=== PATIENT | female | born 1990 | race Hispanic/Latino ===

== ENCOUNTER 2020-02-05 18:26 | Emergency (ER) | payer BC, OTHER ==
[~2020-02-05] VITALS: Ht 162.6 cm; Wt 79.4 kg
--- NOTE | 2020-02-05 19:07 | Emergency Department Note ---
History of Present Illnes History of Present Illness History of Present Illness This is a 29 year old female c/o left foot and ankle pain. Her left foot caught on a rug and she fell, tiny abrasion in the middle toe, tender meddle toe and ankle, no swelling no obvious deformity. . Arrival Mode: Car Computer Training Specialist Required: No Onset (how long ago): hour(s) Radiation: Reports proximal Severity: mild Onset quality: sudden Duration (how long): hour(s) Timing of current episode: constant Progression: unchanged Chronicity: new Relieving factors: none Exacerbating factors: none Associated symptoms: Reports denies other symptoms Treatments prior to arrival: none Past Medical/Family History Physician Review I have reviewed the patient's past medical and family history. Any updates have been documented here. Past Medical History Recent Fever: No Clinical Suspicion of Infectio: No New/Unexplained Change in Ment: No Past Medical History: None Social History Smoking Cessation: Unknown if ever smoked Other Any Pre-Existing Lines (PICC,: No Review of Systems Review of Systems Constitutional: Reports no symptoms EENTM: Reports no symptoms Cardiovascular: Reports no symptoms Respiratory: Reports no symptoms Gastrointestinal: Reports no symptoms Genitourinary: Reports no symptoms Musculoskeletal: Reports as per HPI Integumentary: Reports as per HPI Neurological: Reports no symptoms Psychological: Reports no symptoms Endocrine: Reports no symptoms Hematological/Lymphatic: Reports no symptoms Physical Exam Related Data Allergies: Coded Allergies: zolpidem (Verified Allergy, Unknown, 02/05/20) Vital signs reviewed: Yes Physical Exam CONSTITUTIONAL Constitutional: Present well-developed, Present well-nourished HENT HENT: Present normocephalic, Present atraumatic, Present oropharynx clear/m oist, Present nose normal HENT L/R: Present left ext ear normal, Present right ext ear normal EYES Eyes: Reports PERRL, Reports conjunctivae normal NECK Neck: Present ROM normal PULMONARY Pulmonary: Present effort normal, Present breath sounds normal CARDIOVASCULAR Cardiovascular: Present regular rhythm, Present heart sounds normal, Present capillary refill normal, Present normal rate GASTROINTESTINAL Abdominal: Present soft, Present nontender, Present bowel sounds normal GENITOURINARY Genitourinary: Present exam deferred SKIN Skin: Present warm, Present dry MUSCULOSKELETAL Musculoskeletal: Present ROM normal, Present tenderness (tender middle toe, small abrasion medially, tender ankle no obvious deformity) NEUROLOGICAL Neurological: Present alert, Present oriented x 3, Present no gross motor or sensory deficits PSYCHOLOGICAL Psychological: Present mood/affect normal, Present judgement normal Results Imaging Imaging results reviewed: Yes Imaging Comments no fracture Diagnostics Tests Diagnostic test(s) reviewed: Yes Assessment & Plan Medical Decision Making MDM minor trauma Assessment & Plan Final Impression: (1) Acute pain due to trauma (2) Abrasion foot/toe Depart Disposition: HOME, SELF-CARE Physician Attestation Provider Attestation Pt walks in and out of the ER in no acute distress, gaits brisk and steady, minor injuries JOSE SALAS MD Feb 05, 2020 19:07
--- OUTSIDE RECORDS SUMMARY | 2020-02-05 19:50 | XMS REPORT | Summary of Care ---
Author Author TONYA Noguera LVN Organization Unknown Address Unknown Phone Unavailable Care Team Providers Care Armament Installer Name Role Phone MAEGAN EGAN APRN Unavailable Unavailable SANDRINE Hayward, TRACI Unavailable Unavailable YEH DO [place], GINI-DADA Unavailable Unavailable SANDRINE MARTINI, TRACI Unavailable Unavailable MAYELA MILLARD MD Unavailable Unavailable YEH DO [place], GINI-DADA Unavailable Unavailable Unavailable Unavailable Functional Status Name Dates Details Functional status health issues are not documented Status: Name Dates Details Cognitive status health issues are not d ocumented Status: Problems Name Dates Details Acute maxillary sinusitis (461.0, J01.00 ) Status: Active Fatigue due to sleep pattern disturbance (780.79, R53.83) Status: Active Psychophysiological insomnia (307.42, F5 1.04) Status: Active Clinical depression (311, F32.9) Status: Active Allergic rhinitis, seasonal (477.9, J30. 2) Status: Active Anxiety and depression (300.00, F41.9) Status: Active Annual physical exam (V70.0, Z00.00) Status: Active Medications Name Dates Details hydrOXYzine HCl - 50 MG Oral Tablet BID MAEGAN EGAN APRN * Start : 29-May-2017 Active Lexapro 20 MG Oral Tablet qd * Refills: 0 Active Topiramate 50 MG Oral Tablet * Refills: 0 Active QUEtiapine Fumarate 200 MG Oral Tablet * Refills: 0 Active Rexulti 1 MG Oral Tablet * Refills: 0 Active Allergies and Adverse Reactions Name Dates Details Ambien (Adverse Event) Reaction: Diarrhe a, Vomiting Status: Active Past Medical History Name Dates Details History of anxiety disorder (V11.8, Z86. 59) Status: Resolved History of blood disorder (V12.3, Z86.2) Status: Resolved History of depression (V11.8, Z86.59) Status: Resolved Procedures Procedure Dates Details History of section Completed History of [place] tooth extraction Compl eted History of Tonsillectomy Completed Immunization Name Dates Details Tdap (Boostrix) on: Jun-2015 Family History Name Dates Details Family history of essential hypertension (V17.49, Z82.49) Status: Active Family history of High blood cholesterol (272.0, E78.00) Status: Active Family history of borderline diabetes me llitus (V18.0, Z83.3) Status: Active Name Dates Details Family history of essential hypertension (V17.49, Z82.49) Status: Active Family history of borderline diabetes me llitus (V18.0, Z83.3) Status: Active Social History Name Dates Details - Status: Name Dates Details Smokes tobacco daily (finding) Ex-smoker (finding) Vital Signs Date Test Result Details [id number] Systolic blood pressure 123 mm[Hg] Status: Comments : Location: LUE; Position: Sitting Diastolic blood pressure 79 mm[Hg] Status: Comment s: Location: LUE; Position: Sitting Physical Findings 0 Status: Comments: PH Q-9 Adult Depression Screening Body height 64 in Status: Weight 175 lb Status: Body mass index (BMI) [Ratio] 30.04 kg/m2 Status: Body surface area Derived from formula 1.85 m2 S tatus: Body temperature 98.5 f Status: Comments: Me thod: Temporal Heart Rate 84 /min Status: Comments: Lo cation: L Radial; Respiratory rate 16 /min Status: Comments: Qu ality: Normal Physical Findings 0 Status: Comments: Al cohol Screen - How many times in the past yr have you had 5 (for M) or 4 (for F) or 4 (for all > 65yrs) or more drinks in a day? Results Date Description Value Details Results not documented Plan of Care Name Dates Details Planned Observations Planned Goals not documented Planned Encounters Appointment; MAEGAN EGAN APRN On: 18-Jul-2020 11:00 Interventions Provided Labs/Procedures/Imaging* Tobacco Use Screening; Done: 13 Jan 2020 Plan* 1. Physical * - Papsmear results requested * - Patient to send recent lab work * Patient advised to follow up as needed or if worse, symptoms change or not improving. Patient to call with any questions Instructions Name Dates Details Instructions not documented Encounters Appointment; TRACI DELUCA M.D. Encounter Diagnosis: Problem not documented On: 13-Jan-2020 11:00
--- OUTSIDE RECORDS SUMMARY | 2020-02-05 19:50 | XMS REPORT | Summary of Care ---
Author Author TONYA Glynn R.N. Organization Unknown Address [facility] Phone Unavailable Care Team Providers Care Freelance Translator Name Role Phone MAEGAN EGAN N.P. Unavailable Unavailable Adali Glynn R.N. Unavailable Unavailable YE DO [place], FAZAL Unavailable Unavailable Unavailable Unavailable Functional Status Name Dates Details Functional status health issues are not documented Status: Name Dates Details Cognitive status health issues are not d ocumented Status: Problems Name Dates Details Acute maxillary sinusitis (461.0, J01.00 ) Status: Active Allergic rhinitis, seasonal (477.9, J30. 2) Status: Active Fatigue due to sleep pattern disturbance (780.79, R53.83) Status: Active Clinical depression (311, F32.9) Status: Active Anxiety and depression (300.00, F41.9) Status: Active Psychophysiological insomnia (307.42, F5 1.04) Status: Active Medications Name Dates Details PARoxetine HCl - 40 MG Oral Tablet TAKE 1 TABLET DAILY DIRECTED. Quantity: 90 EGAN N.P., MAEGAN * Start : 03-Feb-2017 Active BuPROPion HCl ER (XL) 300 MG Oral Tablet Extended Release 24 Hour TAKE 1 TABLET DAILY DIRECTED. * Quantity: 90 Refills: 1 EGAN N.P., MAEGAN * Start : 29-May-2017 Active HydrOXYzine HCl - 25 MG Oral Tablet TAKE 1 TABLET AT BEDTIME NEEDED. * Quantity: 30 Refills: 1 EGAN N.P., MAEGAN * Start : 29-May-2017 Active Allergies and Adverse Reactions Name Dates Details Ambien (Adverse Event) Reaction: Diarrhe a, Vomiting Status: Active Past Medical History Name Dates Details History of anxiety disorder (V11.8, Z86. 59) Status: Resolved History of blood disorder (V12.3, Z86.2) Status: Resolved History of depression (V11.8, Z86.59) Status: Resolved Procedures Procedure Dates Details History of Tonsillectomy Completed History of [place] tooth extraction Compl eted History of section Completed Immunization Name Dates Details Immunizations not documented Family History Name Dates Details Family history of borderline diabetes me llitus (V18.0, Z83.3) Status: Active Family history of High blood cholesterol (272.0, E78.00) Status: Active Family history of essential hypertension (V17.49, Z82.49) Status: Active Name Dates Details Family history of borderline diabetes me llitus (V18.0, Z83.3) Status: Active Family history of essential hypertension (V17.49, Z82.49) Status: Active Social History Name Dates Details - Status: Name Dates Details Current every day smoker Vital Signs Date Test Result Details No Known Vitals to report Results Date Description Value Details Results not documented Plan of Care Name Dates Details Planned Observations Planned Goals not documented Instructions Name Dates Details Instructions not documented Encounters Appointment; GILES VAUGHAN M.D. Encounter Diagnosis: Problem not documented On: 03-Feb-2017 15:45 Appointment; MAEGAN EGAN NP Encounter Diagnosis: Problem not documented On: 29-May-2017 10:15 Appointment; MAEGAN EGAN NP Encounter Diagnosis: Problem not documented On: 12-Jun-2017 10:15 Appointment; MAEGAN EGAN NP Encounter Diagnosis: Problem not documented On: 21-Aug-2017 12:15
--- OUTSIDE RECORDS SUMMARY | 2020-02-05 19:50 | XMS REPORT | Continuity of Care Document ---
Author Author [facility] t Organization [facility] Address [address] [place] [address] Phone Unavailable Care Team Providers Care Communications Planner Name Role Phone TRACI DELUCA M.D. Attphys Unavailable MAEGAN EGAN NP Attphys Unavailable GILES VAUGHAN M.D. Attphys Unavailable Payers Payer Name Policy Type Policy Number Effective Date Expiration Date S ource Problems Condition Name Condition Details Condition Category Status Onset Date Resolution Date Last Treatment Date Treating Clinician Comments Source History of depression History of depression Problem Resolved [facility] History of blood disorder History of blood disorder Problem Resolved [facility] Acute maxillary sinusitis Acute maxillary sinusitis Problem Active [facility] Fatigue due to sleep pattern disturbance Fatigue due t o sleep pattern disturbance Problem Active [facility] Psychophysiological insomnia Psychophysiological insomnia Problem Active [facility] Clinical depression Clinical depression Problem Active [facility] Allergic rhinitis, seasonal Allergic rhinitis, seasonal Problem Active [facility] Anxiety and depression Anxiety and depression Problem Active [facility] Annual physical exam Annual physical exam Problem Active [facility] Allergies, Adverse Reactions, Alerts Allergy Name Allergy Type Status Severity Reaction(s) Onset Date Inacti ve Date Treating Clinician Comments Source zolpidem DA Active SV 2019-11-17 00:00:00 [facility] zolpidem DA Active SV 2017-11-11 00:00:00 [facility] Ambien Propensity to adverse reactions to drug (finding) Acti ve Diarrhea, Vomiting [facility] Family History Family Member Diagnosis Comments Start Date Stop Date Source Mother Family history of borderline diabetes mellitus [facility] Mother Family history of High blood cholesterol [facility] Mother Family history of essential hypertension [facility] Father Family history of borderline diabetes mellitus [facility] Father Family history of essential hypertension [facility] Social History Smoking Status Start Date Stop Date Source Smokes tobacco daily (finding) [facility] Ex-smoker (finding) [facility] Medications Ordered Medication Name Filled Medication Name Start Date Stop Da te Current Medication? Ordering Clinician Indication Dosage Frequency Signature (SIG) Comments Components Source hydrOXYzine HCl - 50 MG Oral Tablet hydrOXYzine HCl - 50 MG Oral Tablet 2017-05-29 00:00:00 Yes MAEGAN EGAN [employer] PROGRAM COORDINATOR BID [facility] Lexapro 20 MG Oral Tablet Lexapro 20 MG Oral Tablet Yes qd [facility] Topiramate 50 MG Oral Tablet Topiramate 50 MG Oral Tablet Yes [facility] QUEtiapine Fumarate 200 MG Oral Tablet QUEtiapine Fumarate 200 M G Oral Tablet Yes [facility] Rexulti 1 MG Oral Tablet Rexulti 1 MG Oral Tablet Yes [facility] Immunizations Ordered Immunization Name Filled Immunization Name Date Status Comments Source Tdap (Boostrix) Unknown Completed [facility] Vital Signs Vital Name Observation Time Observation Value Comments Source Systolic blood pressure 2020-01-13 11:00:00 123 mm[Hg] Loca tion: LUE; Position: Sitting [facility] Diastolic blood pressure 2020-01-13 11:00:00 79 mm[Hg] Loc ation: LUE; Position: Sitting [facility] Body height 2020-01-13 11:00:00 64 [in_us] [facility] Weight 2020-01-13 11:00:00 175 [lb_av] [facility] Body mass index (BMI) [Ratio] 2020-01-13 11:00:00 30.04 kg/m2 [facility] Body temperature 2020-01-13 11:00:00 98.5 [degF] Method: Temporal [facility] Heart Rate 2020-01-13 11:00:00 84 /min Location: L Radial; [facility] Respiratory rate 2020-01-13 11:00:00 16 /min Quality: Normal [facility] BP Systolic 2017-08-21 12:22:00 131 mm[Hg] Location: LUE; Positi on: Sitting [facility] BP Diastolic 2017-08-21 12:22:00 80 mm[Hg] Location: TRISTIANE; Positi on: Sitting [facility] Height 2017-08-21 12:22:00 64 [in_us] [facility] Weight 2017-08-21 12:22:00 184.4375 [lb_av] [facility] Body Mass Index Calculated 2017-08-21 12:22:00 31.66 kg/m2 [facility] Temperature 2017-08-21 12:22:00 97.2 [degF] Method: Temporal [facility] Heart Rate 2017-08-21 12:22:00 106 /min [facility] Respiration Rate 2017-08-21 12:22:00 14 /min [facility] BP Systolic 2017-06-12 10:13:00 114 mm[Hg] Location: TRISTIANE; Positi on: Sitting [facility] BP Diastolic 2017-06-12 10:13:00 64 mm[Hg] Location: TRISTIANE; Positi on: Sitting [facility] Height 2017-06-12 10:13:00 64 [in_us] [facility] Weight 2017-06-12 10:13:00 183.2 [lb_av] [facility] Body Mass Index Calculated 2017-06-12 10:13:00 31.45 kg/m2 [facility] Temperature 2017-06-12 10:13:00 98.6 [degF] Method: Oral [facility] Heart Rate 2017-06-12 10:13:00 87 /min [facility] Respiration Rate 2017-06-12 10:13:00 16 /min [facility] BP Systolic 2017-05-29 10:23:00 112 mm[Hg] Location: LUE; Positi on: Sitting [facility] BP Diastolic 2017-05-29 10:23:00 74 mm[Hg] Location: LUE; Positi on: Sitting [facility] Height 2017-05-29 10:23:00 64 [in_us] [facility] Weight 2017-05-29 10:23:00 184 [lb_av] [facility] Body Mass Index Calculated 2017-05-29 10:23:00 31.58 kg/m2 [facility] Temperature 2017-05-29 10:23:00 98.1 [degF] Method: Oral [facility] Respiration Rate 2017-05-29 10:23:00 16 /min [facility] Heart Rate 2017-05-29 10:23:00 86 /min [facility] Procedures Procedure Date / Time Performed Performing Clinician Sourc e [Q] HCG, TOTAL, QL 2017-06-12 00:00:00 [facility] History of Tonsillectomy [facility] History of [place] tooth extraction [facility] History of section [facility] Plan of Care Planned Activity Planned Date Details Comments Source Future Appointment 2020-07-18 11:00:00 YESENIA ISSA [facility] Encounters Start Date/Time End Date/Time [facility] Encounter ID Source 2020-01-13 11:00:00 2020-01-13 11:00:00 Appointment; PEGGY DELUCA M.D. MOHEYUDDIN, AMINA, M.D. [facility], [address] [id number] [facility] 2017-08-21 12:15:00 2017-08-21 12:15:00 Appointment; FAY EGAN NP HOANG, CHRISTINA, NP [facility] [address] [id number] [facility] 2017-06-12 10:15:00 2017-06-12 10:15:00 Appointment; FAY EGAN NP HOANG, CHRISTINA, NP [facility] [address] [id number] [facility] 2017-05-29 10:15:00 2017-05-29 10:15:00 Appointment; FAY EGAN NP HOANG, CHRISTINA, NP [facility] [address] [id number] [facility] 2017-02-03 15:45:00 2017-02-03 15:45:00 Appointment; SINDHU VAUGHAN M.D. PERKISON, WILLIAM, M.D. [facility] [id number] [facility] Results Test Description Test Time Test Comments Results Result Comments Source BASIC METABOLIC PANEL 2019-11-17 23:19:00 Test Item SODIUM (test code = NA) 139 mEq/L 134-147 N POTASSIUM (test code = K) 3.4 mEq/L 3.4-5.0 N CHLORIDE (test code = CL) 106 mEq/L 100-108 N CARBON DIOXIDE (test code = CO2) 26 mEq/L 21-33 N ANION GAP (test code = GAP) 10 0-20 N GLUCOSE (test code = GLU) 94 mg/dL 70-110 N BLOOD UREA NITROGEN (test code = BUN) 10 mg/dL 7-18 N GLOMERULAR FILTRATION RATE (test code = GFR) 84.2 105-110 L Units of measure = ml/min/1.73 m2 CREATININE (test code = CREAT) 0.8 mg/dL 0.6-1.3 N CALCIUM (test code = CA) 9.1 mg/dL 8.0-10.5 N PROTHROMBIN [id number] 23:11:00* Test Item Value Reference Range Interpretation Comments PROTHROMBIN TIME PATIENT (test code = PTP) 11.0 SECONDS 9.3-12.9 N INTERNATIONAL NORMAL RATIO (test code = INR) 1.0 0.8-1.2 N TARGET INR BY INDICATION Indication INR1. Prophylaxis of venous thrombosis 2.0 - 3.0 (orthopedic surgery), Prophylaxis of venous thrombosis (other than high-risk surgery), Treatment of Deep Vein Thrombosis/Pulmonary Embolism, Prevention of systemic embolism - Tissue heart valves, Acute Myocardial Infarction (to prevent systemic embolism), Valvular heart disease, Atrial Fibrillation, Bileaflet mechanical valve in aortic position.2. Mechanical prosthetic valves (high risk), 2.5 - 3.5 Presence of Lupus Anticoagulant or Antiphospholipid Antibodies, Prevention of systemic embolism - Acute Myocardial Infarction (to prevent recurrent infarct). THROMBOPLASTIN TIME [id number] 23:11:00* Test Item Value Reference Range Interpretation Comments THROMBOPLASTIN TIME PARTIAL (test code = PTT) 38.1 Seconds 25.0-39. 5 N Therapeutic Range: 50.4 - 88.3 Seconds Effective 10/12/2018 BASIC METABOLIC [id number] 23:10:00* Test Item Value Reference Range Interpretation Comments SODIUM (test code = NA) 139 mEq/L 134-147 N POTASSIUM (test code = K) 3.4 mEq/L 3.4-5.0 N CHLORIDE (test code = CL) 106 mEq/L 100-108 N CARBON DIOXIDE (test code = CO2) 26 mEq/L 21-33 N ANION GAP (test code = GAP) 10 0-20 N GLUCOSE (test code = GLU) 94 mg/dL 70-110 N BLOOD UREA NITROGEN (test code = BUN) 10 mg/dL 7-18 N GLOMERULAR FILTRATION RATE (test code = GFR) 105-110 CREATININE (test code = CREAT) mg/dL 0.6-1.3 CALCIUM (test code = CA) 9.1 mg/dL 8.0-10.5 N URINALYSIS [id number] 23:10:00* Test Item Value Reference Range Interpretation Comments UA COLOR (test code = COLU) YELLOW YEL/STRAW UA APPEARANCE (test code = APPU) SL CLOUDY CLEAR UA GLUCOSE DIPSTICK (test code = DGLUU) NEGATIVE NEGATIVE UA BILIRUBIN DIPSTICK (test code = BILU) NEGATIVE NEGATIVE UA KETONE DIPSTICK (test code = KETU) NEGATIVE NEGATIVE UA SPECIFIC GRAVITY (test code = SGU) 1.015 1.005-1.030 N UA BLOOD DIPSTICK (test code = JENNIFER) 2+ NEGATIVE A UA PH DIPSTICK (test code = CECILIA) 6.0 5.0-7.0 N UA PROTEIN DIPSTICK (test code = PROU) NEGATIVE NEGATIVE UA UROBILINIOGEN DIPSTICK (test code = URO) 2.0 mg/dL 0.2-1.0 A UA NITRITE DIPSTICK (test code = ALEXANDREA) NEGATIVE NEGATIVE UA LEUKOCYTE ESTERASE DIPSTICK (test code = LEUU) TRACE NEGA TIVE A UA RBC (test code = RBCU) 4-10 RBC/HPF 0-3 UA WBC NO REFLEX (test code = WBCUCL) 4-9 WBC/HPF 0-3 A UA BACTERIA (test code = BACU) 1+ /HPF NONE SEEN A UA SQUAMOUS CELLS (test code = SQU) 6-10 /HPF NONE SEEN A CBC W/AUTO [id number] 23:01:00* Test Item Value Reference Range Interpretation Comments WHITE BLOOD CELL (test code = WBC) 10.95 x10 3/uL 4.5-11.0 N RED BLOOD CELL (test code = RBC) 4.73 x10 6/uL 3.54-5.02 N HEMOGLOBIN (test code = HGB) 13.5 g/dL 11.0-15.0 N HEMATOCRIT (test code = HCT) 42.5 % 33.0-45.0 N MEAN CELL VOLUME (test code = MCV) 89.9 fL 81.0-99.0 N MEAN CELL HGB (test code = MCH) 28.5 pg 27.0-33.0 N MEAN CELL HGB CONCETRATION (test code = MCHC) 31.8 g/dL 33.0-37. 0 L RED CELL DISTRIBUTION WIDTH CV (test code = RDW) 14.4 % 11.5- 14.5 N RED CELL DISTRIBUTION WIDTH SD (test code = RDW-SD) 47.7 fL 37 .0-54.0 N PLATELET COUNT (test code = PLT) 216 x10 3/uL 150-400 N MEAN PLATELET VOLUME (test code = MPV) 10.2 fL 7.0-9.0 H NEUTROPHIL % (test code = NT%) 57.8 % 56.0-77.0 N IMMATURE GRANULOCYTE % (test code = IG%) 0.4 % 0.0-2.0 N LYMPHOCYTE % (test code = LY%) 30.9 % 14.0-32.0 N MONOCYTE % (test code = MO%) 6.9 % 4.8-9.0 N EOSINOPHIL % (test code = EO%) 3.1 % 0.3-3.7 N BASOPHIL % (test code = BA%) 0.9 % 0.0-2.0 N NUCLEATED RBC % (test code = NRBC%) 0.0 % 0-0 N NEUTROPHIL # (test code = NT#) 6.33 x10 3/uL 2.0-7.6 N IMMATURE GRANULOCYTE # (test code = IG#) 0.04 x10 3/uL 0.00-0.03 H LYMPHOCYTE # (test code = LY#) 3.38 x10 3/uL 1.0-3.8 N MONOCYTE # (test code = MO#) 0.76 x10 3/uL 0.1-0.8 N EOSINOPHIL # (test code = EO#) 0.34 x10 3/uL 0.0-0.2 H BASOPHIL # (test code = BA#) 0.10 x10 3/uL 0.0-0.2 N NUCLEATED RBC # (test code = NRBC#) 0.00 x10 3/uL 0.0-0.1 N MANUAL DIFF REQUIRED (test code = IFF) NO [id number] 16:43:00 RUN DATE: 11/11/19 [facility] PAGE 1 RUN TIME: 1643 Specimen Inqui ry RUN USER: INTERFACE PATIENT: TONYA SPAIN ACCT #: [id number] LOC: Patricia U #: [id number] AGE/SX: 28/F ROOM: RE11/09/19REG DR: Jermaine Jensen MD : 88 BED: DIS: STATUS: OLENA PERALTA TLOC: SPEC #: [id number] RECD: 11/10/19-1033 STATUS: RAZ REQ #: [id number] SHERRY: 11/09/19- [facility] DR: Jermaine Jensen MD ENTERED: 11/10/19-1034 SP TYPE: [facility] DR: ORDERED: GROSS PROCEDURES: GROSS (11/11/19-1050) TISSUES: PRODUCTS OF CONCEPTION, NOS CLINICAL HISTORY COLLECTION RAMANA E: 11/09/19 MISSED FINAL DIAGNOSIS Products of concepti on, dilatation and curettage: IMMATURE CHORIONIC VILLI AND SECRETORY ENDO METRIUM WITH DECIDUAL CHANGE DMW/sm D [id number] MACROSCO PIC The specimen is received in formalin, labeled with the patient's name, an d identified as "products of conception". It consists of multiple callahan-roldan fragments of tissue received in a clear plastic curettage device. The tissue measures 4.5 x 3.7 x 0.8 cm in aggregate. Samples of the specimen are submitt ed for microscopic evaluation in cassettes (1A and 1B). IZAIAH PERFORME D AT [facility] [address] [place] [address] (p)[phone] MICROSCOPIC Al l of the stains, including any controls performed, stain appropriately. MICROSCOPIC PERFORMED AT [facility] CONTINUED ON NEXT PAGE RUN DATE: 11/11/19 [facility] PAGE 2 RUN TIME: 1643 Specimen Inquiry RUN USER: INTERFACE SPEC #: [id number] PATIENT: TONYA SPAIN #[id number] (Continue d) MICROSCOPIC ([facility]) [facility] [address] [facility] [address] (P)[phone] PERFORM ING SITE Diagnosis performed at: [facility] [address] [place] [address] Signed SIGNATURE ON FILE Nina More MD 11/11/19 1643 END OF REPORT Novel Coronavirus 2018 [id number] 13:41:00* Test Item Value Reference Range Interpretation Comments Novel Coronavirus 2018 Inhouse (test code = COVNONPUI) Negative Negative SENT TO 11/07/19Testing Criteria: Preprocedure ScreeningTesting Criteria: Preprocedure ScreeningNovel Coronavirus 2019 [id number] 13:41:00* Test Item Value Reference Range Interpretation Comments Novel Coronavirus 2018 Inhouse (test code = COVNONPUI) Negative Negative Testing Criteria: Preprocedure ScreeningCOMPREHENSIVE METABOLIC PANEL 2019-11-07 18:33:00* Test Item Value Reference Range Interpretation Comments SODIUM (test code = NA) 139 mmol/L 136-145 N POTASSIUM (test code = K) 3.6 mmol/L 3.5-5.1 N CHLORIDE (test code = CL) 106.0 mmol/L 98-107 N CARBON DIOXIDE (test code = CO2) 26.0 mmol/L 21-32 N ANION GAP (test code = GAP) 10.6 10-20 N GLUCOSE (test code = GLU) 78 mg/dL 74-106 N BLOOD UREA NITROGEN (test code = BUN) 7 mg/dL 7-18 N GLOMERULAR FILTRATION RATE (test code = GFR) > 60 mL/min >=60 Estimated GFR by using Modified MDRD formula.Chronic kidney disease is defined as either kidney damageor GFR <60 mL/min/1.73 m2 for >3 months. CREATININE (test code = CREAT) 0.60 mg/dL 0.55-1.02 N Note change in reference range due to change in reagent. BUN/CREATININE RATIO (test code = BUN/CREA) 11.7 10-20 N TOTAL PROTEIN (test code = PROT) 7.8 gram/dL 6.4-8.2 N ALBUMIN (test code = ALB) 4.0 g/dL 3.4-5.0 N GLOBULIN (test code = GLOB) 3.8 gram/dL 2.7-4.2 N ALBUMIN/GLOBULIN RATIO (test code = A/G) 1.1 0.75-1.50 N CALCIUM (test code = CA) 9.1 mg/dL 8.5-10.1 N BILIRUBIN TOTAL (test code = BILT) 0.10 mg/dL 0.0-1.0 N SGOT/AST (test code = AST) 13 IUnit/L 15-37 L SGPT/ALT (test code = ALT) 22 IUnit/L 12-78 N ALKALINE PHOSPHATASE TOTAL (test code = ALKP) 77 IUnit/L 45-117 N Note change in reference range due to change in reagent. COMPREHENSIVE METABOLIC [id number] 18:25:00* Test Item Value Reference Range Interpretation Comments SODIUM (test code = NA) 139 mmol/L 136-145 N POTASSIUM (test code = K) 3.6 mmol/L 3.5-5.1 N CHLORIDE (test code = CL) 106.0 mmol/L 98-107 N CARBON DIOXIDE (test code = CO2) mmol/L 21-32 ANION GAP (test code = GAP) 10-20 GLUCOSE (test code = GLU) mg/dL 74-106 BLOOD UREA NITROGEN (test code = BUN) mg/dL 7-18 GLOMERULAR FILTRATION RATE (test code = GFR) mL/min >=60 CREATININE (test code = CREAT) mg/dL 0.55-1.02 BUN/CREATININE RATIO (test code = BUN/CREA) 10-20 TOTAL PROTEIN (test code = PROT) gram/dL 6.4-8.2 ALBUMIN (test code = ALB) g/dL 3.4-5.0 GLOBULIN (test code = GLOB) gram/dL 2.7-4.2 ALBUMIN/GLOBULIN RATIO (test code = A/G) 0.75-1.50 CALCIUM (test code = CA) mg/dL 8.5-10.1 BILIRUBIN TOTAL (test code = BILT) mg/dL 0.0-1.0 SGOT/AST (test code = AST) IUnit/L 15-37 SGPT/ALT (test code = ALT) IUnit/L 12-78 ALKALINE PHOSPHATASE TOTAL (test code = ALKP) IUnit/L 45-117 CBC W/AUTO [id number] 17:56:00* Test Item Value Reference Range Interpretation Comments WHITE BLOOD CELL (test code = WBC) 10.6 K/mm3 4.5-12.5 N RED BLOOD CELL (test code = RBC) 4.69 mill/mm3 3.7-5.2 N HEMOGLOBIN (test code = HGB) 13.5 gram/dL 11.5-15.5 N HEMATOCRIT (test code = HCT) 41.9 % 36.0-46.0 N MEAN CELL VOLUME (test code = MCV) 89.3 fL 80-98 N MEAN CELL HGB (test code = MCH) 28.8 picogram 27.0-33.0 N MEAN CELL HGB CONCETRATION (test code = MCHC) 32.2 gram/dL 33.0-36. 0 L RED CELL DISTRIBUTION WIDTH (test code = RDW) 15.4 % 11.6-16. 2 N RED CELL DISTRIBUTION WIDTH SD (test code = RDW-SD) 49.7 fL 37 .0-51.0 N PLATELET COUNT (test code = PLT) 197 K/mm3 150-450 N MEAN PLATELET VOLUME (test code = MPV) 10.9 fL 6.7-11.0 N NEUTROPHIL % (test code = NT%) 53.6 % 39.0-69.0 N IMMATURE GRANULOCYTE % (test code = IG%) 0.4 % 0.0-5.0 N LYMPHOCYTE % (test code = LY%) 36.1 % 25.0-55.0 N MONOCYTE % (test code = MO%) 6.2 % 0.0-10.0 N EOSINOPHIL % (test code = EO%) 2.6 % 0.0-5.0 N BASOPHIL % (test code = BA%) 1.1 % 0.0-1.0 H NUCLEATED RBC % (test code = NRBC%) 0.0 % 0-0 N NEUTROPHIL # (test code = NT#) 5.67 K/mm3 1.8-7.7 N IMMATURE GRANULOCYTE # (test code = IG#) 0.04 x10 3/uL 0-0.03 H LYMPHOCYTE # (test code = LY#) 3.83 K/mm3 1.0-5.0 N MONOCYTE # (test code = MO#) 0.66 K/mm3 0-0.8 N EOSINOPHIL # (test code = EO#) 0.28 K/mm3 0.0-0.5 N BASOPHIL # (test code = BA#) 0.12 K/mm3 0.0-0.2 N NUCLEATED RBC # (test code = NRBC#) 0.00 K/mm3 0.0-0.1 N MANUAL DIFF REQUIRED (test code = MDIFF) NO CBC W/AUTO [id number] 17:38:00* Test Item Value Reference Range Interpretation Comments WHITE BLOOD CELL (test code = WBC) K/mm3 4.5-12.5 RED BLOOD CELL (test code = RBC) mill/mm3 3.7-5.2 HEMOGLOBIN (test code = HGB) 13.5 gram/dL 11.5-15.5 N HEMATOCRIT (test code = HCT) 41.9 % 36.0-46.0 N MEAN CELL VOLUME (test code = MCV) fL 80-98 MEAN CELL HGB (test code = MCH) picogram 27.0-33.0 MEAN CELL HGB CONCETRATION (test code = MCHC) gram/dL 33.0-36. 0 RED CELL DISTRIBUTION WIDTH (test code = RDW) % 11.6-16. 2 RED CELL DISTRIBUTION WIDTH SD (test code = RDW-SD) fL 37 .0-51.0 PLATELET COUNT (test code = PLT) K/mm3 150-450 MEAN PLATELET VOLUME (test code = MPV) fL 6.7-11.0 NEUTROPHIL % (test code = NT%) % 39.0-69.0 IMMATURE GRANULOCYTE % (test code = IG%) % 0.0-5.0 LYMPHOCYTE % (test code = LY%) % 25.0-55.0 MONOCYTE % (test code = MO%) % 0.0-10.0 EOSINOPHIL % (test code = EO%) % 0.0-5.0 BASOPHIL % (test code = BA%) % 0.0-1.0 NEUTROPHIL # (test code = NT#) K/mm3 1.8-7.7 LYMPHOCYTE # (test code = LY#) K/mm3 1.0-5.0 MONOCYTE # (test code = MO#) K/mm3 0-0.8 EOSINOPHIL # (test code = EO#) K/mm3 0.0-0.5 BASOPHIL # (test code = BA#) K/mm3 0.0-0.2 BASIC METABOLIC [id number] 22:07:00* Test Item Value Reference Range Interpretation Comments SODIUM (test code = NA) 137 mEq/L 134-147 N POTASSIUM (test code = K) 3.7 mEq/L 3.4-5.0 N CHLORIDE (test code = CL) 106 mEq/L 100-108 N CARBON DIOXIDE (test code = CO2) 26 mEq/L 21-33 N ANION GAP (test code = GAP) 9 0-20 N GLUCOSE (test code = GLU) 91 mg/dL 70-110 N BLOOD UREA NITROGEN (test code = BUN) 8 mg/dL 7-18 N GLOMERULAR FILTRATION RATE (test code = GFR) 98.3 105-110 L Units of measure = ml/min/1.73 m2 CREATININE (test code = CREAT) 0.7 mg/dL 0.6-1.3 N CALCIUM (test code = CA) 8.8 mg/dL 8.0-10.5 N Is patient ? YHOW MANY WEEKS? 8 WEEKSHCG [id number] 22:07:00* Test Item Value Reference Range Interpretation Comments HCG SERUM (test code = HCG) 90128 0 - 6 NOT > 6 SUGGESTIVE OF EARLY RISES TWO FOLD EVERY 2 DAYS; SUGGEST RE CONFIRMING AFTER 2 DAYS. 150,000-200,[address] TRIMESTER 10,000 - 50,000 2ND & 3RD TRIMESTERResults in wale-International Units/mL Is patient ? YHOW MANY WEEKS? 8 WEEKS- DUP AB/PEL/SC/[id number] 22:07:00 Name: TONYA SPAIN [facility] : 1990 Age/S: 28 / F [address] [place] [address] Blvd Unit #: [id number] Loc: [place] [address] Phys: Albino Bowen NP Acct: [id number] Dis Date: Status: PRE ER PHONE #: [phone] Exam Date: 10/24/20192158 FAX #: [phone] Reason: see US PREG 1st TRIMTR EXAMS: CPT CODE: [id number] DUP AB/PEL/SC/LTD 43925 PROCEDURE: FIRST TRIMESTER ULTRASOUND INDICATION: 8 week intrauterine with left lower quadrant pelvic pain. COMPARISON: None. TRANSABDOMINAL SCAN: Uterus measures 10.9 x 6.3 x 6.9 cm containing an intrauterine gestational sac with pole identified within with average crown-rump length of 1.29 cm correlating with 7 weeks 3 days gestational age. heart tones measure 132 bpm. Right ovary measures 4.3 x 2.3 x 2 cm and the left ovary measures 2.4 x 1.4 x 3.1 cm. Arterial waveforms documented to each ovary. No adnexal mass identified. TRANSVAGINAL SCAN: Transvaginal exam was performed for better visualization of the pelvic structures. Uterus measures 8.7 x 4.8 x 6.5 cm containing intrauterine gestational sac with yolk sac and pole identified within with average crown-rump length of 1.05 cm correlating with 7 weeks 1 day gestational age. heart tones measure 136 bpm. 1.4 x 0.5 x 0.4 cm heterogeneous hypoechoic avascular area peripheral to the gestational sac is seen. Right ovary measures 3.7 x 2 x 2.7 cm containing dominant 1.47 follicle within. Venous waveforms to the ovary are documented. Left ovary appears normal measuring 3 x 1.5 x 2.6 cm with arterial waveforms detected. Trace free fluid in the cul-de-sac within physiologic limits. IMPRESSION: 1. Single viable intrauterine of estimated sonographic gestational age of 7 weeks 2 days. 2. Findings suggesting small subchorionic hemorrhage. SL: SG-H at 2207 Reported and signed by: Aiden Mendez M.D. CC: Albino Bowen NP; Jermaine Jensen MD Technologist: Morena Escoto RDMS(AB)(OB) Trnscb Date/Time: 10/24/2019 (2206) [id number] Orig Print D/T: S: 10/24/2019 (2210) Probe: PAGE 1 Signed Report - US PREG UT TRANSVAGINAL 2019-10-24 22:07:00 Name: TONYA SPAIN [facility] : 1990 Age/S: 28 / F [address] [place] [address] Unit #: [id number] Loc: [place] [address] Phys: Albino Bowen NP Acct: [id number] Dis Date: Status: PRE ER PHONE #: [phone] Exam Date: 10/24/20192158 FAX #: [phone] Reason: see US PREG 1st TRIMTR EXAMS: CPT CODE: [id number] US PREG UT TRANSVAGINAL 64524 PROCEDURE: FIRST TRIMESTER ULTRASOUND INDICATION: 8 week intrauterine with left lower quadrant pelvic pain. COMPARISON: None. TRANSABDOMINAL SCAN: Uterus measures 10.9 x 6.3 x 6.9 cm containing an intrauterine gestational sac with pole identified within with average crown-rump length of 1.29 cm correlating with 7 weeks 3 days gestational age. heart tones measure 132 bpm. Right ovary measures 4.3 x 2.3 x 2 cm and the left ovary measures 2.4 x 1.4 x 3.1 cm. Arterial waveforms documented to each ovary. No adnexal mass identified. TRANSVAGINAL SCAN: Transvaginal exam was performed for better visualization of the pelvic structures. Uterus measures 8.7 x 4.8 x 6.5 cm containing intrauterine gestational sac with yolk sac and pole identified within with average crown-rump length of 1.05 cm correlating with 7 weeks 1 day gestational age. heart tones measure 136 bpm. 1.4 x 0.5 x 0.4 cm heterogeneous hypoechoic avascular area peripheral to the gestational sac is seen. Right ovary measures 3.7 x 2 x 2.7 cm containing dominant 1.47 follicle within. Venous waveforms to the ovary are documented. Left ovary appears normal measuring 3 x 1.5 x 2.6 cm with arterial waveforms detected. Trace free fluid in the cul-de-sac within physiologic limits. IMPRESSION: 1. Single viable intrauterine of estimated sonographic gestational age of 7 weeks 2 days. 2. Findings suggesting small subchorionic hemorrhage. SL: SG-H at 2206 Reported and signed by: Aiden Mendez M.D. CC: Albino Bowen NP; Jermaine Jensen MD Technologist: Morena Escoto RDMS(AB)(OB) Trnscb Date/Time: 10/24/2019 (2206) [email or web address] Orig Print D/T: S: 10/24/2019 (2210) Probe: [id number] PAGE 1 Signed Report - US PREG 1ST [id number] 22:07:00 Name: TONYA SPAIN [facility] : 1990 Age/S: 28 / F [address] [place] [address] Unit #: [id number] Loc: [place] [address] Phys: Albino Bowen NP Acct: [id number] Dis Date: Status: PRE ER PHONE #: [phone] Exam Date: 10/24/20192158 FAX #: [phone] Reason: , 8wk ges, unknown IUP, LLQ pain EXAMS: CPT CODE: [id number] US PREG 1ST TRIMTR 59250 PROCEDURE: FIRST TRIMESTER ULTRASOUND INDICATION: 8 week intrauterine with left lower quadrant pelvic pain. COMPARISON: None. TRANSABDOMINAL SCAN: Uterus measures 10.9 x 6.3 x 6.9 cm containing an intrauterine gestational sac with pole identified within with average crown-rump length of 1.29 cm correlating with 7 weeks 3 days gestational age. heart tones measure 132 bpm. Right ovary measures 4.3 x 2.3 x 2 cm and the left ovary measures 2.4 x 1.4 x 3.1 cm. Arterial waveforms documented to each ovary. No adnexal mass identified. TRANSVAGINAL SCAN: Transvaginal exam was performed for better visualization of the pelvic structures. Uterus measures 8.7 x 4.8 x 6.5 cm containing intrauterine gestational sac with yolk sac and pole identified within with average crown-rump length of 1.05 cm correlating with 7 weeks 1 day gestational age. heart tones measure 136 bpm. 1.4 x 0.5 x 0.4 cm heterogeneous hypoechoic avascular area peripheral to the gestational sac is seen. Right ovary measures 3.7 x 2 x 2.7 cm containing dominant 1.47 follicle within. Venous waveforms to the ovary are documented. Left ovary appears normal measuring 3 x 1.5 x 2.6 cm with arterial waveforms detected. Trace free fluid in the cul-de-sac within physiologic limits. IMPRESSION: 1. Single viable intrauterine of estimated sonographic gestational age of 7 weeks 2 days. 2. Findings suggesting small subchorionic hemorrhage. SL: SG-H at 2207 Reported and signed by: Aiden Mendez M.D. CC: Albino Bowen CABINET INSTALLER; Jermaine Jensen MD Technologist: Morena Escoto RDMS(AB)(OB) Trnscb Date/Time: 10/24/2019 (2206) [email or web address] Orig Print D/T: S: 10/24/2019 (2210) Probe: PAGE 1 Signed Report UA RFLX MICR CULT IF INDICATED 2019-10-24 21:53:00* Test Item Value Reference Range Interpretation Comments UA COLOR (test code = COLU) YELLOW YEL/STRAW UA APPEARANCE (test code = APPU) CLOUDY CLEAR A UA GLUCOSE DIPSTICK (test code = DGLUU) NEGATIVE NEGATIVE UA BILIRUBIN DIPSTICK (test code = BILU) NEGATIVE NEGATIVE UA KETONE DIPSTICK (test code = KETU) NEGATIVE NEGATIVE UA SPECIFIC GRAVITY (test code = SGU) 1.005 1.005-1.030 N UA BLOOD DIPSTICK (test code = JENNIFER) NEGATIVE NEGATIVE UA PH DIPSTICK (test code = CECILIA) 7.0 5.0-7.0 N UA PROTEIN DIPSTICK (test code = PROU) NEGATIVE NEGATIVE UA UROBILINIOGEN DIPSTICK (test code = URO) 0.2 mg/dL 0.2-1.0 UA NITRITE DIPSTICK (test code = ALEXANDREA) NEGATIVE NEGATIVE UA LEUKOCYTE ESTERASE DIPSTICK (test code = LEUU) 3+ NEGA TIVE A UA WBC (test code = WBCU) 4-9 WBC/HPF 0-3 A UA RBC (test code = RBCU) 4-10 RBC/HPF 0-3 UA WBC NO REFLEX (test code = WBCUCL) 4-9 WBC/HPF 0-3 A UA BACTERIA (test code = BACU) 2+ /HPF NONE SEEN A UA SQUAMOUS CELLS (test code = SQU) 6-10 /HPF NONE SEEN A UA MUCUS (test code = MUCU) TRACE /LPF NONE SEEN Indication for culture: Suprapubic PainSpecimen Description: CLEAN CATCH BASIC METABOLIC [id number] 21:47:00* Test Item Value Reference Range Interpretation Comments SODIUM (test code = NA) 137 mEq/L 134-147 N POTASSIUM (test code = K) 3.7 mEq/L 3.4-5.0 N CHLORIDE (test code = CL) 106 mEq/L 100-108 N CARBON DIOXIDE (test code = CO2) 26 mEq/L 21-33 N ANION GAP (test code = GAP) 9 0-20 N GLUCOSE (test code = GLU) 91 mg/dL 70-110 N BLOOD UREA NITROGEN (test code = BUN) 8 mg/dL 7-18 N GLOMERULAR FILTRATION RATE (test code = GFR) 105-110 CREATININE (test code = CREAT) mg/dL 0.6-1.3 CALCIUM (test code = CA) 8.8 mg/dL 8.0-10.5 N Is patient ? YHOW MANY WEEKS? 8 WEEKSHCG [id number] 21:47:00* Test Item Value Reference Range Interpretation Comments HCG SERUM (test code = HCG) Is patient ? YHOW MANY WEEKS? 8 WEEKSCBC W/AUTO [id number] 21:42:00 * Test Item Value Reference Range Interpretation Comments WHITE BLOOD CELL (test code = WBC) 11.17 x10 3/uL 4.5-11.0 H RED BLOOD CELL (test code = RBC) 4.53 x10 6/uL 3.54-5.02 N HEMOGLOBIN (test code = HGB) 12.9 g/dL 11.0-15.0 N HEMATOCRIT (test code = HCT) 40.1 % 33.0-45.0 N MEAN CELL VOLUME (test code = MCV) 88.5 fL 81.0-99.0 N MEAN CELL HGB (test code = MCH) 28.5 pg 27.0-33.0 N MEAN CELL HGB CONCETRATION (test code = MCHC) 32.2 g/dL 33.0-37. 0 L RED CELL DISTRIBUTION WIDTH CV (test code = RDW) 14.9 % 11.5- 14.5 H RED CELL DISTRIBUTION WIDTH SD (test code = RDW-SD) 48.4 fL 37 .0-54.0 N PLATELET COUNT (test code = PLT) 219 x10 3/uL 150-400 N MEAN PLATELET VOLUME (test code = MPV) 10.4 fL 7.0-9.0 H NEUTROPHIL % (test code = NT%) 55.5 % 56.0-77.0 L IMMATURE GRANULOCYTE % (test code = IG%) 0.4 % 0.0-2.0 N LYMPHOCYTE % (test code = LY%) 34.8 % 14.0-32.0 H MONOCYTE % (test code = MO%) 6.0 % 4.8-9.0 N EOSINOPHIL % (test code = EO%) 2.6 % 0.3-3.7 N BASOPHIL % (test code = BA%) 0.7 % 0.0-2.0 N NUCLEATED RBC % (test code = NRBC%) 0.0 % 0-0 N NEUTROPHIL # (test code = NT#) 6.19 x10 3/uL 2.0-7.6 N IMMATURE GRANULOCYTE # (test code = IG#) 0.05 x10 3/uL 0.00-0.03 H LYMPHOCYTE # (test code = LY#) 3.89 x10 3/uL 1.0-3.8 H MONOCYTE # (test code = MO#) 0.67 x10 3/uL 0.1-0.8 N EOSINOPHIL # (test code = EO#) 0.29 x10 3/uL 0.0-0.2 H BASOPHIL # (test code = BA#) 0.08 x10 3/uL 0.0-0.2 N NUCLEATED RBC # (test code = NRBC#) 0.00 x10 3/uL 0.0-0.1 N MANUAL DIFF REQUIRED (test code = MDIFF) NO B-TYPE NATRIURETIC [id number] 00:56:00* Test Item Value Reference Range Interpretation Comments B-TYPE NATRIURETIC PEPTIDE (test code = BNP) < 2.0 PG/ML 0-100 N BASIC METABOLIC [id number] 00:49:00* Test Item Value Reference Range Interpretation Comments SODIUM (test code = NA) 139 mEq/L 134-147 N POTASSIUM (test code = K) 3.4 mEq/L 3.4-5.0 N CHLORIDE (test code = CL) 106 mEq/L 100-108 N CARBON DIOXIDE (test code = CO2) 29 mEq/L 21-33 N ANION GAP (test code = GAP) 7 0-20 N GLUCOSE (test code = GLU) 88 mg/dL 70-110 N BLOOD UREA NITROGEN (test code = BUN) 8 mg/dL 7-18 N GLOMERULAR FILTRATION RATE (test code = GFR) 84.2 105-110 L Units of measure = ml/min/1.73 m2 CREATININE (test code = CREAT) 0.8 mg/dL 0.6-1.3 N CALCIUM (test code = CA) 8.8 mg/dL 8.0-10.5 N HEPATIC FUNCTION [id number] 00:49:00* Test Item Value Reference Range Interpretation Comments TOTAL PROTEIN (test code = PROT) 8.1 g/dL 6.4-8.2 N ALBUMIN (test code = ALB) 4.20 g/dL 3.4-5.0 N BILIRUBIN TOTAL (test code = BILT) 0.20 mg/dL 0.0-1.0 N BILIRUBIN DIRECT (test code = BILD) < 0.10 MG/DL 0.0-0.30 N BILIRUBIN INDIRECT (test code = BILIND) 0.10 MG/DL SGOT/AST (test code = AST) 15 IUnit/L 15-37 N SGPT/ALT (test code = ALT) 50 IUnit/L 15-65 N ALKALINE PHOSPHATASE TOTAL (test code = ALKP) 90 IUnit/L 20-125 N [id number] 00:49:00* Test Item Value Reference Range Interpretation Comments LIPASE (test code = LIP) 131 IUnit/L 73-393 N [id number] 00:49:00* Test Item Value Reference Range Interpretation Comments TROPONIN-I (test code = TROPI) < 0.015 ng/mL 0.000-0.045 N Negative: <= 0.045 Positive: >= 0.046 Correlation with serial results, other cardiac markers andclinical findings is necessary to determine the clinicalsignificance of this result. Results using different methodologies should not be comparedto one another as quantitative results may vary by method. BASIC METABOLIC [id number] 00:36:00* Test Item Value Reference Range Interpretation Comments SODIUM (test code = NA) 139 mEq/L 134-147 N POTASSIUM (test code = K) 3.4 mEq/L 3.4-5.0 N CHLORIDE (test code = CL) 106 mEq/L 100-108 N CARBON DIOXIDE (test code = CO2) 29 mEq/L 21-33 N ANION GAP (test code = GAP) 7 0-20 N GLUCOSE (test code = GLU) 88 mg/dL 70-110 N BLOOD UREA NITROGEN (test code = BUN) 8 mg/dL 7-18 N GLOMERULAR FILTRATION RATE (test code = GFR) 84.2 105-110 L Units of measure = ml/min/1.73 m2 CREATININE (test code = CREAT) 0.8 mg/dL 0.6-1.3 N CALCIUM (test code = CA) 8.8 mg/dL 8.0-10.5 N HEPATIC FUNCTION [id number] 00:36:00* Test Item Value Reference Range Interpretation Comments TOTAL PROTEIN (test code = PROT) 8.1 g/dL 6.4-8.2 N ALBUMIN (test code = ALB) 4.20 g/dL 3.4-5.0 N BILIRUBIN TOTAL (test code = BILT) 0.20 mg/dL 0.0-1.0 N BILIRUBIN DIRECT (test code = BILD) < 0.10 MG/DL 0.0-0.30 N BILIRUBIN INDIRECT (test code = BILIND) 0.10 MG/DL SGOT/AST (test code = AST) 15 IUnit/L 15-37 N SGPT/ALT (test code = ALT) 50 IUnit/L 15-65 N ALKALINE PHOSPHATASE TOTAL (test code = ALKP) IUnit/L 20-125 [id number] 00:36:00* Test Item Value Reference Range Interpretation Comments LIPASE (test code = LIP) 131 IUnit/L 73-393 N [id number] 00:36:00* Test Item Value Reference Range Interpretation Comments TROPONIN-I (test code = TROPI) < 0.015 ng/mL 0.000-0.045 N Negative: <= 0.045 Positive: >= 0.046 Correlation with serial results, other cardiac markers andclinical findings is necessary to determine the clinicalsignificance of this result. Results using different methodologies should not be comparedto one another as quantitative results may vary by method. PROTHROMBIN [id number] 00:25:00* Test Item Value Reference Range Interpretation Comments PROTHROMBIN TIME PATIENT (test code = PTP) 11.6 SECONDS 9.3-12.9 N INTERNATIONAL NORMAL RATIO (test code = INR) 1.0 0.8-1.2 N TARGET INR BY INDICATION Indication INR1. Prophylaxis of venous thrombosis 2.0 - 3.0 (orthopedic surgery), Prophylaxis of venous thrombosis (other than high-risk surgery), Treatment of Deep Vein Thrombosis/Pulmonary Embolism, Prevention of systemic embolism - Tissue heart valves, Acute Myocardial Infarction (to prevent systemic embolism), Valvular heart disease, Atrial Fibrillation, Bileaflet mechanical valve in aortic position.2. Mechanical prosthetic valves (high risk), 2.5 - 3.5 Presence of Lupus Anticoagulant or Antiphospholipid Antibodies, Prevention of systemic embolism - Acute Myocardial Infarction (to prevent recurrent infarct). THROMBOPLASTIN TIME [id number] 00:25:00* Test Item Value Reference Range Interpretation Comments THROMBOPLASTIN TIME PARTIAL (test code = PTT) 37.1 Seconds 25.0-39. 5 N Therapeutic Range: 50.4 - 88.3 Seconds Effective 10/12/2018 [id number] 00:25:00* Test Item Value Reference Range Interpretation Comments D-DIMER (test code = DDIMER) 369 ng/mlFEU <=500 N THROMBOSIS AND/OR PULMONARY EMBOLISM AND THE CLINICAL CUT- OFF VALUE FOR EXCLUSION (500 ng/mL FEU) OF THESE CONDITIONSIS VALIDATED BY THE LEAD FRONT DESK AGENT OF THE METHOD. A NEGATIVE D-DIMER RESULT WHEN COMBINED WITH A CLINICALASSESSMENT OF LOW PRETEST PROBABILITY HAS BEEN SHOWN TO HAVEA HIGH NEGATIVE PREDICTIVE VALUE OF DVT OR PE. D-DIMER VALUES >500 ng/mL FEU ARE NOT DIAGNOSTIC FOR DVT, PEor DIC WITHOUT OTHER CONFIRMATORY TESTS AND APPROPRIATECLINICAL EUALUATIONS. CBC W/AUTO [id number] 00:13:00* Test Item Value Reference Range Interpretation Comments WHITE BLOOD CELL (test code = WBC) 8.88 x10 3/uL 4.5-11.0 N RED BLOOD CELL (test code = RBC) 5.25 x10 6/uL 3.54-5.02 H HEMOGLOBIN (test code = HGB) 14.8 g/dL 11.0-15.0 N HEMATOCRIT (test code = HCT) 45.5 % 33.0-45.0 H MEAN CELL VOLUME (test code = MCV) 86.7 fL 81.0-99.0 N MEAN CELL HGB (test code = MCH) 28.2 pg 27.0-33.0 N MEAN CELL HGB CONCETRATION (test code = MCHC) 32.5 g/dL 33.0-37. 0 L RED CELL DISTRIBUTION WIDTH CV (test code = RDW) 14.5 % 11.5- 14.5 N RED CELL DISTRIBUTION WIDTH SD (test code = RDW-SD) 46.5 fL 37 .0-54.0 N PLATELET COUNT (test code = PLT) 184 x10 3/uL 150-400 N MEAN PLATELET VOLUME (test code = MPV) 10.7 fL 7.0-9.0 H NEUTROPHIL % (test code = NT%) 44.5 % 56.0-77.0 L IMMATURE GRANULOCYTE % (test code = IG%) 0.5 % 0.0-2.0 N LYMPHOCYTE % (test code = LY%) 44.4 % 14.0-32.0 H MONOCYTE % (test code = MO%) 6.0 % 4.8-9.0 N EOSINOPHIL % (test code = EO%) 3.6 % 0.3-3.7 N BASOPHIL % (test code = BA%) 1.0 % 0.0-2.0 N NUCLEATED RBC % (test code = NRBC%) 0.0 % 0-0 N NEUTROPHIL # (test code = NT#) 3.96 x10 3/uL 2.0-7.6 N IMMATURE GRANULOCYTE # (test code = IG#) 0.04 x10 3/uL 0.00-0.03 H LYMPHOCYTE # (test code = LY#) 3.94 x10 3/uL 1.0-3.8 H MONOCYTE # (test code = MO#) 0.53 x10 3/uL 0.1-0.8 N EOSINOPHIL # (test code = EO#) 0.32 x10 3/uL 0.0-0.2 H BASOPHIL # (test code = BA#) 0.09 x10 3/uL 0.0-0.2 N NUCLEATED RBC # (test code = NRBC#) 0.00 x10 3/uL 0.0-0.1 N MANUAL DIFF REQUIRED (test code = MDIFF) NO TROPONIN-I [id number] 23:51:00* Test Item Value Reference Range Interpretation Comments TROPONIN-I RAPID (test code = TROPIRAP) 0.00 ng/mL 0.00-0.08 N Performed by certified press operator automatic at [facility] Negative: <= 0.08 Positive: >= 0.09An elevated troponin value alone is not sufficient todiagnose a myocardial infarction. Rather, the patient sclinical presentation (history, physical exam) and ECGshould be used in conjunction with troponin in thediagnostic evaluation of suspected myocardial infarction. Aserial sampling protocol is recommended to facilitate the identification of temporal changes in troponin levels characteristic of [place]. - XR CHEST 1 [id number] 23:18:00 FAX: Tera Pink MD [phone] [place]: [employer] [address]: REG Name: Luisito TONYA BROWNE [facility] : [birth year] Age/S: 28/F [address] [place] [address] Unit #: [id number] Loc: [place] [address] Phys: Tera Zambrano MD Acct: [id number] Dis Date: Status: REG ER PHONE #: [phone] Exam Date: 12/08/20182312 FAX #: [phone] Reason: Chest Pain EXAMS: CPT CODE: [id number] XR CHEST 1 V 26719 Chest, single view dated 12/08/2018 . HISTORY: Chest pain. Shortness of breath. Compari son is made to a prior study dated 11/11/2017. The heart is normal in size. The cardiomediastinal shadow is stable. The lungs appear clear. The pulmonary vasculature is normal in caliber. No acute pleural space abnormalities are detected. IMPRESSION: 1. No radiograp hic evidence of acute cardiopulmonary disease. SL: 131 at 4976 Reported and signed by: Alexandr Reilly M.D. CC: Tera Zambrano MD Technologist: RT Kit( R) Trnscrd Date/Time/By: 12/08/2018 (8055) : B y: Inocente Orig Print D/T: S: 12/08/2018 (5907) PAGE 1 Signed Report
--- NOTE | 2020-02-05 19:54 | Diagnostic Imaging Report ---
FOOT 2 VIEW LT - HOPD -2 views left foot. HISTORY: Pain. Second toe pain COMPARISON: None available. FINDINGS: The second toe is only visualized fully on the AP view which limits assessment. No displaced fracture or dislocation is identified on this single view. Otherwise, the foot appears normal. IMPRESSION: No acute fracture or dislocation identified on this limited study. If clinically warranted, consider dedicated toe radiographs. Signed by: Tera Adams MD on 02/05/2020 7:51 PM
== END 2020-02-05 20:12 | disposition home or self-care (01) ==
LOC: FSED 19:00
DX: S90.812A Abrasion, left foot, initial encounter (principal); S90.415A Abrasion, left lesser toe(s), initial encounter; W01.0XXA Fall on same level from slipping, tripping and stumbling without subsequent striking against object, initial encounter; Y92.008 Other place in unspecified non-institutional (private) residence as the place of occurrence of the external cause
CPT/HCPCS: 99283